=== PATIENT | male | born 1985 | race American Indian/Alaskan Native ===

== ENCOUNTER 2018-11-15 14:34 | Emergency (ER) | payer SELFPAY ==
[2018-11-15] MEDS ORDERED: ATIVAN IV ONE (14:58)
[2018-11-15] MEDS ORDERED: VITAMIN B-1 100 MG, FOLVITE 1 MG, INFUVITE 10 ML in NACL 0.9% 1000 ML 1,000 ML IV ONE (15:00)
--- NOTE | 2018-11-15 15:06 | Emergency Department Report ---
HPI - General Chief Complaint: Seizure Time Seen by Provider: 11/15/18 14:52 - HPI HPI: Room 18 The patient is a 32-year-old male presenting with chief complaint of seizure. The patient has a history of alcoholism and states he's had 6 seizures in the past all related to alcohol withdrawal. The patient is currently at [facility] for alcohol detox when he had a witnessed generalized tonic-clonic seizure. Patient was administered Ativan 2 mg IM prior to arrival. As I was filling out the patient complains of right upper paraspinous back pain and just feeling worn down/tired. The patient states he last consumed alcohol 4 days ago Location: [facility] Duration: [See above] Quality: Generalized tonic-clonic Severity: [See above] Modifying factors: [see above] Context: [see above] Mode of transportation: [not driving] ED Past Medical Hx - Past Medical History Previous Medical History?: Yes Additional medical history: Alcohol withdrawal seizures - Surgical History Past Surgical History?: No - Family History Family history: no significant - Social History Smoking Status: Current Every Day Smoker Substance Use Type: Alcohol (consumes ~15-18 shots liquor daily) ED Review of Systems ROS: Stated complaint: SEIZURE Other details as noted in HPI Constitutional: malaise Eyes: denies: eye pain ENT: denies: throat pain Respiratory: no symptoms reported Cardiovascular: denies: chest pain Endocrine: no symptoms reported Gastrointestinal: denies: abdominal pain Musculoskeletal: back pain Neurological: denies: headache Physical Exam - Physical Exam Physical Exam: GENERAL: The patient is well-developed well-nourished male lying on stretcher not appearing to be in acute distress. [] HEENT: Normocephalic. Atraumatic. Extraocular motions are intact. Patient has moist mucous membranes. NECK: Supple. No meningitic signs are noted. Trachea midline CHEST/LUNGS: Clear to auscultation. There is no respiratory distress noted. HEART/CARDIOVASCULAR: Regular. There is tachycardia. There is no gallop rub or murmur. ABDOMEN: Abdomen is soft, nontender. Patient has normal bowel sounds. There is no abdominal distention. SKIN: There is no rash. There is no edema. There is no diaphoresis. NEURO: The patient is awake, alert, and oriented. The patient is cooperative. The patient has no focal neurologic deficits. The patient has normal speech. Cranial nerves II through XII grossly intact, no drift. Mild tremulousness noted MUSCULOSKELETAL: There is no thoracic axial tenderness to palpation there is mild right upper thoracic paraspinous discomfort to palpation. There is no evidence of acute injury. ED Medical Decision Making - Lab Data Result diagrams: 11/15/18 15:05 11/15/18 15:05 - Differential Diagnosis alcohol withdrawal seizure Critical care attestation.: If time is entered above; I have spent that time in minutes in the direct care of this critically ill patient, excluding procedure time. ED Disposition Clinical Impression: Alcohol withdrawal seizure Disposition: -09 OP ADMIT IP TO THIS HOSP Is pt being admited?: Yes Does the pt Need Aspirin: No Condition: Fair Referrals: ELANA TRIPLETT MD [Primary Care Provider] - 3-5 Days Time of Disposition: 16:19 (hospitalist notified (Dr Larkin))
[2018-11-15 15:23] LABS: Basophils # (Auto) 0.1 K/mm3 (0.0-0.1); Basophils % (Auto) 2.1 % (0.0-1.8); Eosinophils # (Auto) 0.1 K/mm3 (0.0-0.4); Eosinophils % (Auto) 1.3 % (0.0-4.3); Hematocrit 36.8 % (35.5-45.6); Hemoglobin 12.7 gm/dl (11.8-15.2); Lymphocytes # (Auto) 1.1 K/mm3 (1.2-5.4); Lymphocytes % (Auto) 19.9 % (13.4-35.0); Mean Corpuscular HGB Conc 34 % (32-34); Mean Corpuscular Volume 105 fl (84-94); Monocytes # (Auto) 0.6 K/mm3 (0.0-0.8); Monocytes % (Auto) 10.6 % (0.0-7.3); Platelet Count 201 K/mm3 (140-440); Red Blood Count 3.52 M/mm3 (3.65-5.03); Red Cell Distribution Width 14.1 % (13.2-15.2)
[2018-11-15 15:42] LABS: Alanine Aminotransferase 180 units/L (7-56); Albumin 3.8 g/dL (3.9-5); BUN/Creatinine Ratio 11; Blood Urea Nitrogen 10 mg/dL (9-20); Calcium 8.7 mg/dL (8.4-10.2); Hemolysis Index 15
[2018-11-15] MEDS ORDERED: MAGNESIUM SULFATE 2GM/50ML 2 GM/50 ML BAG IV ONE ×2 (16:00→17:59)
[2018-11-15] MEDS ORDERED: KEPPRA 1,500 MG in D5W 100 ML IV SCH (16:30)
--- NOTE | 2018-11-15 16:52 | Cat Scan Report ---
NONENHANCED CT SCAN OF THE BRAIN: INDICATION: Seizures TECHNIQUE: Nonenhanced transverse images were obtained. Sagittal and coronal reformatted images were obtained. All CT scans at this location are performed using CT dose reduction for ALARA by means of a utomated exposure control. COMPARISON: None. FINDINGS: BRAIN / INTRACRANIAL CONTENTS: No acute hemorrhage, mass effect, midline shift, hydrocephalus, or acu te, large territorial infarct. High convexity cortical sulci are slightly prominent. Temporal horn ti ps are normal. Periventricular and deep hemispheric white matter are normal. Significant white matter abnormality. CRANIOCERVICAL JUNCTION: No significant abnormality. ORBITS: No significant abnormality of visualized orbits. SINUSES / MASTOIDS: No significant abnormality of the visualized paranasal sinuses or mastoid air ni ls. ADDITIONAL FINDINGS: None. IMPRESSION: Normal nonenhanced CT scan of the brain. Signer Name: Bev Britt MD Signed: 11/15/2018 4:48 PM Workstation Name: [id number]
[2018-11-15] MEDS ORDERED: D5NS 1,000 ML IV SCH (17:00)
--- NOTE | 2018-11-15 18:02 | Event Note ---
Date: 11/15/18 Patient evaluated Had one episode of seizures Now stable Not postictal Magnesium 1.5 IV Magnesium given IV Keppra given Transitioned to po Keppra Ativan 1 mg po q3 prn D/c to [facility] Medically stable and cleared to go to [facility]
[2018-11-15 21:36] VITALS: BP 114/70
== END 2018-11-15 21:38 | disposition admitted as inpatient to this hospital (09) ==
LOC: ED 14:34
DX: F10.239 Alcohol dependence with withdrawal, unspecified (principal); F17.200 Nicotine dependence, unspecified, uncomplicated
CPT/HCPCS: 36415; 70450; 80053; 83735; 85025; 96365; 96366; 96367; 96375; 99284; J1953; J2060; J3411; J3475; J7030